=== PATIENT | male | born 1985 | race Caucasian/White ===

== ENCOUNTER 2017-09-17 20:56 | Emergency (ER) | payer MEDICAID ==
[~2017-09-17] VITALS: Ht 170.2 cm; Wt 73.2 kg
[~2017-09-17 20:56] MED LIST: CALC300T4 PO; IBUP-1984 PO
[2017-09-17 21:00] VITALS: BP 140/86
[2017-09-17] MEDS ORDERED: CLIN300C53 PO (21:15)
== END 2017-09-17 21:30 | disposition home or self-care (01) ==
LOC: ER 20:56
DX: K04.7 Periapical abscess without sinus (principal); J45.909 Unspecified asthma, uncomplicated; F15.10 Other stimulant abuse, uncomplicated; Z60.2 Problems related to living alone; Z98.890 Other specified postprocedural states; Z88.0 Allergy status to penicillin
CPT/HCPCS: 99283

== ENCOUNTER 2018-05-21 19:35 | Inpatient (IN) | payer MEDICAID, OTHER ==
[~2018-05-21] VITALS: Ht 167.6 cm; Wt 72.7 kg
[2018-05-21] MEDS ORDERED: diphenhydrAMINE 50 mg/ml inj IV ONE (19:40)
[2018-05-21] MEDS ORDERED: LORazepam 2 mg/ml vial IV ONE (19:40)
[2018-05-21] MEDS ORDERED: metoclopramide 5 mg/ml inj IV ONE (19:40)
[2018-05-21] MEDS ORDERED: normal saline 1000ML IV soln IVB ONE ×3 (19:40→20:20)
[2018-05-21 20:01] LABS: MEAN CORPUSCULAR HEMOGLOBIN 31.5 PG (27.0-31.0); MEAN CORPUSCULAR HGB CONC 33.5 % (33.0-36.5); MEAN CORPUSCULAR VOLUME 94.1 FL (78-98); MEAN PLATELET VOLUME 8.6 FL (7.4-10.4); PLATELET COUNT 349 X10'3 (140-440); RED BLOOD COUNT 6.98 X10'6 (4.70-6.10); RED CELL DISTRIBUTION WIDTH 12.5 % (11.5-14.5); WHITE BLOOD COUNT 22.6 X10'3 (4.5-11.0)
[2018-05-21 20:15] LABS: ALANINE AMINOTRANSFERASE 38 U/L (12-78); ALBUMIN 5.9 G/DL (3.4-5.0); ALBUMIN/GLOBULIN RATIO 1.2 (1.1-1.5); ALKALINE PHOSPHATASE 143 IU/L (46-116); ANION GAP 27 (8-16); ASPARTATE AMINO TRANSFERASE 56 U/L (10-37); BILIRUBIN,TOTAL 0.9 MG/DL (0.1-1.0); BLOOD UREA NITROGEN 75 MG/DL (7-18); BUN/CREATININE RATIO 7.9 (5.4-32.0); CHLORIDE 84 MMOL/L (99-107); CREATININE 9.48 MG/DL (0.60-1.10); GLUCOSE 145 MG/DL (70-104); LIPASE 99 U/L (73-393); POTASSIUM 4.8 MMOL/L (3.5-5.1); SODIUM 133 MMOL/L (135-145); TOTAL CARBON DIOXIDE 21.8 MMOL/L (24-32); TOTAL PROTEIN 10.9 G/DL (6.4-8.2); eGFR 6 ML/MIN
[2018-05-21 20:19] LABS: HEMATOCRIT 65.7 % (42.0-52.0)
[2018-05-21 20:33] LABS: PLATELET ESTIMATE NORMAL; TOTAL CELLS COUNTED 100
[2018-05-21 20:38] LABS: CLARITY,URINE CLOUDY (Clear); COLOR,URINE YELLOW (Yellow); GLUCOSE, URINE NEGATIVE (Neg); KETONES,URINE 15 mg/dl (Neg); LEUKOCYTE ESTERASE ,URINE NEGATIVE (Neg); NITRITES, URINE NEGATIVE (Neg); OCCULT BLOOD,URINE LARGE (Neg); PROTEIN,URINE 100 mg/dl (Neg); UROBILINOGEN,URINE 0.2 E.U/dL (0.2-1.0)
[2018-05-21 20:54] LABS: UA COLLECTION TYPE STRAIGHT CATH
[2018-05-21] MEDS ORDERED: temazepam 15mg capsule PO PRN (21:00)
[2018-05-21 21:03] LABS: MUCUS STRANDS MODERATE /LPF (Neg)
[2018-05-21 21:04] LABS: FINE GRANULAR CAST 0-3 /LPF (NEGATIVE)
[2018-05-21 21:05] LABS: AMORPHOUS URATES 2+; BACTERIA,URINE FEW /HPF (Neg)
[2018-05-21 21:06] LABS: SQUAMOUS EPITHELIAL CELL,UR MANY /LPF (FEW)
[2018-05-21] MEDS ORDERED: normal saline 1000ml 1,000 ML IV SCH (23:24)
[2018-05-21] MEDS ORDERED: mag hydrox/Alum hydrox/simeth 30ml oral suspension PO PRN (23:25)
[2018-05-21] MEDS ORDERED: HYDROmorphone 1 mg/ml syringe IV PRN (23:25)
[2018-05-21] MEDS ORDERED: morphine 4 MG/ML inj SYRINge IV PRN (23:25)
[2018-05-21] MEDS ORDERED: bisacodyl 10mg suppository rectal RC PRN (23:25)
[2018-05-21] MEDS ORDERED: magnesium hydroxide 30ml (MOM) UD suspension PO PRN (23:25)
[2018-05-21] MEDS ORDERED: ondansetron/PF 4mg/2ml inj IV PRN (23:25)
[2018-05-21] MEDS ORDERED: diphenhydrAMINE 50 mg/ml inj IV PRN (23:25)
[2018-05-21] MEDS ORDERED: acetaminophen 325mg tablet PO PRN ×2 (23:25)
[2018-05-21] MEDS ORDERED: metoclopramide 5 mg/ml inj IV PRN (23:25)
[2018-05-21] MEDS ORDERED: HYDROcodone/acetaminophen 10/325mg tab PO PRN (23:25)
[2018-05-21] MEDS ORDERED: diphenhydrAMINE 25mg capsule PO PRN (23:25)
[2018-05-21] MEDS ORDERED: acetaminophen 650mg rectal suppository RC PRN (23:25)
[2018-05-21 23:56] LABS: INR 1.2 INR; PARTIAL THROMBOPLASTIN TIME 33 SECONDS (22-32); PROTHROMBIN TIME 11.6 SECONDS (9.0-12.0)
[2018-05-22 00:07] LABS: MAGNESIUM 2.6 MG/DL (1.5-2.4)
[2018-05-22 00:08] LABS: CREATINE KINASE 2104 U/L (39-308); PHOSPHORUS 12.7 MG/DL (2.3-4.5)
[2018-05-22 00:14] LABS: HEMOGLOBIN A1C 5.2 % (4.5-6.2)
[2018-05-22 00:22] LABS: HEMATOCRIT 50.6 % (42.0-52.0); HEMOGLOBIN 17.6 g/dl (14.0-17.9); MEAN CORPUSCULAR HEMOGLOBIN 32.6 PG (27.0-31.0); MEAN CORPUSCULAR HGB CONC 34.8 % (33.0-36.5); MEAN CORPUSCULAR VOLUME 93.5 FL (78-98); MEAN PLATELET VOLUME 8.2 FL (7.4-10.4); PLATELET COUNT 288 X10'3 (140-440); RED BLOOD COUNT 5.41 X10'6 (4.70-6.10); RED CELL DISTRIBUTION WIDTH 12.5 % (11.5-14.5); WHITE BLOOD COUNT 18.9 X10'3 (4.5-11.0)
--- NOTE | 2018-05-22 00:54 | NUR ---
PATIENT AWAKE AND AT THE NURSING STATION ASKING WHERE THE BATHROOM IS WAS ABLE TO OBTAIN THAT PATIENT IS A0X4 AND WAS ABLE TO OBSERVE PATIENT AMBULATE W/O ASSIST 10 FEET WITH STEADY GAIT TO BATHROOM AND BACK TO ER BED #1
--- NOTE | 2018-05-22 01:10 | NUR ---
Patient in ER. I have received report from AQUILES Brady and had the opportunity to ask questions.
--- NOTE | 2018-05-22 01:19 | NUR ---
Patient arrived via wheelchair to room 8283S. Patient is able to stand and walk to bed without assistance. IV in place with normal saline running at 100ml/hr. Patient oriented to room, call light within reach, bed low and locked, patient wearing non skid socks. Water provided. sugar grinder #[id number] placed on patient. Vital signs assessed. Patient is A&Ox4 pink, warm and dry. Patient is sleepy and awakens to name then falls back asleep. Patient is unable to stay awake for admission questions. Will attempt at a later time.
[2018-05-22 01:30] VITALS: BP 144/84
--- NOTE | 2018-05-22 01:59 | NUR ---
Page to Dr. Rizvi to confirm fluid orders. PAGER ID: [phone] MESSAGE: Re: Clinton Malone Room: 3015A. Has 2 different fluid orders. Normal saline at 100 and D5W at 150ml.....Please call AQUILES Kim. [phone] Addendum: 05/22/18 at 0203 by Kayley Motley RN Per Dr. Rizvi D/C the Normal saline and run the D5W. Troponin order to be every 6 hour x3.
[2018-05-22] MEDS: dextrose 5%-water 1,000 ML IV SCH ×3 (02:26→10:47)
[2018-05-22 02:37] LABS: URINE AMPHETAMINE SCREEN POSITIVE (Neg); URINE BARBITUATE SCREEN NEGATIVE (Neg); URINE BENZODIAZEPINES SCREEN NEGATIVE (Neg); URINE CANNABINOID SCREEN POSITIVE (Neg); URINE COCAINE SCREEN NEGATIVE (Neg); URINE METHADONE SCREEN NEGATIVE (Neg); URINE OPIATE SCREEN NEGATIVE (Neg); URINE PHENCYCLIDINE SCREEN NEGATIVE (Neg)
[2018-05-22 06:00] VITALS: BP 129/81
[2018-05-22 06:23] LABS: BASOPHILS # (AUTO) 0.1 X10'3 (0-0.2); BASOPHILS % (AUTO) 0.4 % (0-1); EOSINOPHILS % (AUTO) 0 % (0-6); HEMOGLOBIN 16.9 g/dl (14.0-17.9); LYMPHOCYTES # (AUTO) 2.2 X10'3 (1.1-4.8); MEAN CORPUSCULAR HEMOGLOBIN 32.2 PG (27.0-31.0); MEAN CORPUSCULAR HGB CONC 34.5 % (33.0-36.5); MEAN CORPUSCULAR VOLUME 93.4 FL (78-98); MEAN PLATELET VOLUME 8.5 FL (7.4-10.4); MONOCYTES # (AUTO) 1.7 X10'3 (0-0.9); MONOCYTES % (AUTO) 10.6 % (2-12); NEUTROPHILS # (AUTO) 11.7 X10'3 (1.8-7.7); PLATELET COUNT 251 X10'3 (140-440); RED BLOOD COUNT 5.25 X10'6 (4.70-6.10); RED CELL DISTRIBUTION WIDTH 12.5 % (11.5-14.5); WHITE BLOOD COUNT 15.7 X10'3 (4.5-11.0)
[2018-05-22 06:28] LABS: ALANINE AMINOTRANSFERASE 30 U/L (12-78); ALBUMIN 3.5 G/DL (3.4-5.0); ALBUMIN/GLOBULIN RATIO 1.1 (1.1-1.5); ALKALINE PHOSPHATASE 82 IU/L (46-116); ANION GAP 11 (8-16); ASPARTATE AMINO TRANSFERASE 38 U/L (10-37); BILIRUBIN,TOTAL 0.9 MG/DL (0.1-1.0); BLOOD UREA NITROGEN 64 MG/DL (7-18); BUN/CREATININE RATIO 19.5 (5.4-32.0); CALCIUM 7.8 MG/DL (8.5-10.1); CHLORIDE 100 MMOL/L (99-107); CREATININE 3.29 MG/DL (0.60-1.10); GLUCOSE 130 MG/DL (70-104); POTASSIUM 3.8 MMOL/L (3.5-5.1); SODIUM 136 MMOL/L (135-145); TOTAL CARBON DIOXIDE 25.5 MMOL/L (24-32); TOTAL PROTEIN 6.6 G/DL (6.4-8.2); TROPONIN I < 0.04 NG/ML (0.0-0.05); eGFR 22 ML/MIN
--- NOTE | 2018-05-22 06:35 | NUR ---
Problems reprioritized. Patient report given, questions answered & plan of care reviewed with AQUILES Martinez. Patient responds to his name, is fatigued.
--- NOTE | 2018-05-22 06:49 | NUR ---
Patient in room PCU 3015. I have received report from AQUILES Kim and had the opportunity to ask questions and assume patient care.
[2018-05-22] MEDS: nicotine 21mg patch - 24 hr TD SCH (08:00)
[2018-05-22] MEDS: heparin, porcine 5000 units/ml vial SQ SCH ×2 (08:48→20:34)
[2018-05-22] MEDS: pantoprazole 40 MG vial IV SCH (08:48)
[2018-05-22] MEDS: docusate sod 100mg capsule PO SCH ×2 (08:48→20:32)
--- NOTE | 2018-05-22 09:04 | NUR ---
PAGER ID: [phone] MESSAGE: [id number] Clintonasael Annaard: I see the Levaquin is set to start tomorrow in the computer. Do you want me to change it to start today? AQUILES Martinez Ext [phone]
[2018-05-22] MEDS ORDERED: levoFLOXACIN-Levaquin 500mg/D5 100 ML IV SCH (09:10)
[2018-05-22 11:00] VITALS: BP 124/72
[2018-05-22] MEDS: normal saline 1000ml 1,000 ML IV SCH (17:02)
[2018-05-22 18:00] VITALS: BP 141/74
--- NOTE | 2018-05-22 18:28 | NUR ---
Problems reprioritized. Patient report given, questions answered & plan of care reviewed with AQUILES Kim.
[2018-05-22 19:00] VITALS: BP 141/74
[2018-05-22] MEDS ORDERED: lactobacillus rhamnosus 10,000 MMU CELLS/CAPSULE PO SCH (20:00)
[2018-05-22] MEDS: lactobacillus rhamnosus 10,000 MMU CELLS/CAPSULE PO SCH (20:32)
--- NOTE | 2018-05-23 00:15 | NUR ---
Problems reprioritized. Patient report given, questions answered & plan of care reviewed with AQUILES Hassan. Patient sleeping at time of report.
--- NOTE | 2018-05-23 00:20 | NUR ---
Patient in room PCU 3013. I have received report from Judy KWAN and had the opportunity to ask questions and assume patient care.
[2018-05-23 01:45] VITALS: BP 115/65
[2018-05-23 03:00] VITALS: BP 101/62
[2018-05-23] MEDS: normal saline 1000ml 1,000 ML IV SCH (03:53)
[2018-05-23 06:00] VITALS: BP 137/73
--- NOTE | 2018-05-23 06:31 | NUR ---
Patient in room PCU 3013. I have received report from AQUILES Humphries and had the opportunity to ask questions and assume patient care.
[2018-05-23 07:02] LABS: BASOPHILS % (AUTO) 0.5 % (0-1); EOSINOPHILS # (AUTO) 0.1 X10'3 (0-0.9); EOSINOPHILS % (AUTO) 0.8 % (0-6); HEMATOCRIT 45.3 % (42.0-52.0); HEMOGLOBIN 15.4 g/dl (14.0-17.9); LYMPHOCYTES # (AUTO) 2.2 X10'3 (1.1-4.8); LYMPHOCYTES % (AUTO) 24.3 % (21-51); MEAN CORPUSCULAR HEMOGLOBIN 31.8 PG (27.0-31.0); MEAN CORPUSCULAR VOLUME 93.5 FL (78-98); MEAN PLATELET VOLUME 8.4 FL (7.4-10.4); MONOCYTES # (AUTO) 1.2 X10'3 (0-0.9); MONOCYTES % (AUTO) 13.4 % (2-12); NEUTROPHILS # (AUTO) 5.5 X10'3 (1.8-7.7); PLATELET COUNT 221 X10'3 (140-440); RED BLOOD COUNT 4.85 X10'6 (4.70-6.10); RED CELL DISTRIBUTION WIDTH 11.8 % (11.5-14.5)
[2018-05-23 07:18] LABS: ALANINE AMINOTRANSFERASE 32 U/L (12-78); ALBUMIN 3.1 G/DL (3.4-5.0); ALKALINE PHOSPHATASE 74 IU/L (46-116); ANION GAP 7 (8-16); ASPARTATE AMINO TRANSFERASE 47 U/L (10-37); BILIRUBIN,TOTAL 1.9 MG/DL (0.1-1.0); BLOOD UREA NITROGEN 25 MG/DL (7-18); BUN/CREATININE RATIO 25.5 (5.4-32.0); CALCIUM 8.1 MG/DL (8.5-10.1); CHLORIDE 102 MMOL/L (99-107); CREATININE 0.98 MG/DL (0.60-1.10); GLUCOSE 97 MG/DL (70-104); POTASSIUM 3.7 MMOL/L (3.5-5.1); SODIUM 137 MMOL/L (135-145); TOTAL CARBON DIOXIDE 28.2 MMOL/L (24-32); TOTAL PROTEIN 6.1 G/DL (6.4-8.2); eGFR 88 ML/MIN
[2018-05-23] MEDS ORDERED: levoFLOXACIN-Levaquin 500mg/D5 100 ML IV SCH (08:00)
[2018-05-23] MEDS: docusate sod 100mg capsule PO SCH (08:02)
[2018-05-23] MEDS: pantoprazole 40 MG vial IV SCH (08:02)
[2018-05-23] MEDS: lactobacillus rhamnosus 10,000 MMU CELLS/CAPSULE PO SCH (08:02)
[2018-05-23] MEDS: heparin, porcine 5000 units/ml vial SQ SCH (08:03)
[2018-05-23] MEDS: nicotine 21mg patch - 24 hr TD SCH (08:04)
[2018-05-23] MEDS ORDERED: pneumococcal 23-VAL P-sac vacc 25 mcg/0.5ml vial IMVAC ONE (10:00)
[2018-05-23] MEDS ORDERED: FLU VACC QUAD 2018(5 YR UP)/PF 60 MCG/0.5 ML SYRINGE IM ONE (10:00)
--- NOTE | 2018-05-23 10:02 | NUR ---
[place] consult: Patient's current wt of 72.73 kg is stable with documented wt from previous visit of 73.25 kg 09/17/17. No documented edema or decrease in muscle strength. Pt currently does not meet criteria for malnutrition. Will continue to follow. Addendum: 05/23/18 at [address] Amended: Links added.
[2018-05-23 11:00] VITALS: BP 130/70
[2018-05-23 15:00] VITALS: BP 136/73
--- NOTE | 2018-05-23 15:43 | NUR ---
SS met w/pt to review referrals made for PMD/WPC, AOD treatment/services & resources for low-income rentals. Pt given listing of low-income apartment in [facility], information re how to access AOD assessment from providers in the [facility]. Pt indicated that he may be discharging tomorrow and will stay w/friends in the area, pt declined SS offer to secure a bed for him @ the [place]. SS will provide written D/C Instructions @ time of d/c.
--- NOTE | 2018-05-23 18:00 | NUR ---
Patient in room PCU 3013. I have received report from Juan KWAN and had the opportunity to ask questions and assume patient care. Pt has just gotten off the phone with Dr. Kirkland. DC orders have been put in. Pt to be DC tonight. Significant other at the bedside. Confirms she would be his ride home. Pt anxious to leave. Discussed that I would need some time to get his paperwork ready and will return to remove his IV and wristband before leaving.
[2018-05-23] MEDS ORDERED: LEVO500T2 PO (18:13)
--- NOTE | 2018-05-23 18:24 | NUR ---
Problems reprioritized. Patient report given, questions answered & plan of care reviewed with AQUILES Mccain.
--- NOTE | 2018-05-23 18:30 | NUR ---
Med called into [facility] on [address]
--- NOTE | 2018-05-23 20:02 | NUR ---
Pt DCd. Escorted down with PCU aide and pt's significant other as ride home. IV removed. Wrist band cut. DC paperwork signed and copied.
[2018-05-24] MEDS ORDERED: pantoprazole 40mg Tablet.DR PO SCH (07:30)
--- NOTE | 2018-05-24 09:26 | NUR ---
Pt d/c'd home, SS referral closed
== END 2018-05-23 20:00 | disposition home or self-care (01) | DRG 720 ==
LOC: ER 19:36 → ED HOLD 23:24 → PCU 3S 05-22 01:15
PROVIDERS: ADMIT Family Medicine; ATTEND Hospitalist
PROC: 3E0234Z Introduction of Serum, Toxoid and Vaccine into Muscle, Percutaneous Approach (ICD-10-PCS; principal; 2018-05-23)
PROC: 3E02340 Introduction of Influenza Vaccine into Muscle, Percutaneous Approach (ICD-10-PCS; 2018-05-23)
DX: A41.9 Sepsis, unspecified organism (principal); N17.0 Acute kidney failure with tubular necrosis; G93.41 Metabolic encephalopathy; E44.0 Moderate protein-calorie malnutrition; N39.0 Urinary tract infection, site not specified; E86.0 Dehydration; I10 Essential (primary) hypertension; J20.9 Acute bronchitis, unspecified; J44.0 Chronic obstructive pulmonary disease with (acute) lower respiratory infection; K21.9 Gastro-esophageal reflux disease without esophagitis; F15.129 Other stimulant abuse with intoxication, unspecified; F17.210 Nicotine dependence, cigarettes, uncomplicated; Z23 Encounter for immunization; Z79.899 Other long term (current) drug therapy; Z68.25 Body mass index [BMI] 25.0-25.9, adult
CPT/HCPCS: 36415; 70450; 71045; 74176; 80053; 80305; 81001; 82550; 82948; 83036; 83605; 83690; 83735; 83880; 84100; 84443; 84484; 85025; 85027; 85610; 85730; 87070; 87088; 93005; 96361; 96374; 96375; 99285; C9113; G0378; J1200; J1644; J1956; J2060; J2765; J7030; J7070; Q2037

== ENCOUNTER 2018-06-24 08:49 | Outpatient (CLI) | payer MEDICAID | END 2018-06-24 23:59 | disposition home or self-care (01) | LOC: CARD DIAG 08:49 | PROVIDERS: ATTEND Student in an Organized Health Care Education/Training Program | DX: I07.1 Rheumatic tricuspid insufficiency (principal); J45.909 Unspecified asthma, uncomplicated; Z88.0 Allergy status to penicillin | CPT/HCPCS: 93306 ==

== ENCOUNTER 2018-08-22 16:30 | Emergency (ER) | payer MEDICAID ==
[~2018-08-22] VITALS: Ht 167.6 cm; Wt 75.0 kg
[2018-08-22] MEDS ORDERED: ondansetron 4mg rapidly disintigrating tab PO ONE ×2 (16:55→19:30)
[2018-08-22 17:29] LABS: URINE AMPHETAMINE SCREEN NEGATIVE (Neg); URINE BARBITUATE SCREEN NEGATIVE (Neg); URINE BENZODIAZEPINES SCREEN NEGATIVE (Neg); URINE CANNABINOID SCREEN POSITIVE (Neg); URINE COCAINE SCREEN NEGATIVE (Neg); URINE METHADONE SCREEN NEGATIVE (Neg); URINE OPIATE SCREEN NEGATIVE (Neg); URINE PHENCYCLIDINE SCREEN NEGATIVE (Neg)
[2018-08-22 17:34] LABS: CLARITY,URINE CLOUDY (Clear); COLOR,URINE AMBER (Yellow); GLUCOSE, URINE NEGATIVE (Neg); KETONES,URINE 15 mg/dl (Neg); LEUKOCYTE ESTERASE ,URINE NEGATIVE (Neg); NITRITES, URINE NEGATIVE (Neg); OCCULT BLOOD,URINE TRACE-INTACT (Neg); PH,URINE 5.5 (4.8-8.0); PROTEIN,URINE 30 mg/dl (Neg); UROBILINOGEN,URINE 0.2 E.U/dL (0.2-1.0)
[2018-08-22 17:35] LABS: UA COLLECTION TYPE VOIDED
[2018-08-22 17:51] LABS: CAL OXALATE CRYSTALS FEW /HPF (NEGATIVE)
[2018-08-22 17:52] LABS: SQUAMOUS EPITHELIAL CELL,UR FEW /LPF (FEW)
[2018-08-22] MEDS ORDERED: ONDA4TAB6 PO ×2 (17:54→19:43)
[2018-08-22] MEDS ORDERED: ASPI-130 PO (17:54)
[2018-08-22 18:01] LABS: BACTERIA,URINE 3+ /HPF (Neg)
[2018-08-22 18:02] LABS: BASOPHILS # (AUTO) 0.1 X10'3 (0-0.2); BASOPHILS % (AUTO) 0.7 % (0-1); EOSINOPHILS # (AUTO) 0.1 X10'3 (0-0.9); EOSINOPHILS % (AUTO) 0.5 % (0-6); HEMATOCRIT 51.6 % (42.0-52.0); HEMOGLOBIN 17.8 g/dl (14.0-17.9); LYMPHOCYTES # (AUTO) 1.7 X10'3 (1.1-4.8); LYMPHOCYTES % (AUTO) 11.4 % (21-51); MEAN CORPUSCULAR HGB CONC 34.6 g/dL (33.0-36.5); MEAN CORPUSCULAR VOLUME 92.5 FL (78-98); MEAN PLATELET VOLUME 7.6 FL (7.4-10.4); MONOCYTES # (AUTO) 0.7 X10'3 (0-0.9); MONOCYTES % (AUTO) 4.9 % (2-12); NEUTROPHILS # (AUTO) 12.1 X10'3 (1.8-7.7); NEUTROPHILS % (AUTO) 82.5 % (42-75); PLATELET COUNT 263 X10'3 (140-440); RED BLOOD COUNT 5.58 X10'6 (4.70-6.10); RED CELL DISTRIBUTION WIDTH 13.3 % (11.5-14.5); WHITE BLOOD COUNT 14.7 X10'3 (4.5-11.0)
[2018-08-22 18:22] LABS: ALANINE AMINOTRANSFERASE 40 U/L (12-78); ALBUMIN 4.8 G/DL (3.4-5.0); ALBUMIN/GLOBULIN RATIO 1.5 (1.1-1.5); ALKALINE PHOSPHATASE 97 IU/L (46-116); ANION GAP 11 (8-16); ASPARTATE AMINO TRANSFERASE 38 U/L (10-37); BILIRUBIN,TOTAL 1.4 MG/DL (0.1-1.0); BLOOD UREA NITROGEN 29 MG/DL (7-18); CALCIUM 9.8 MG/DL (8.5-10.1); CHLORIDE 101 MMOL/L (99-107); CREATININE 1.32 MG/DL (0.60-1.10); GLUCOSE 119 MG/DL (70-104); LIPASE < 50 U/L (73-393); POTASSIUM 4.2 MMOL/L (3.5-5.1); SODIUM 139 MMOL/L (135-145); TOTAL CARBON DIOXIDE 26.8 MMOL/L (24-32); TOTAL PROTEIN 8.1 G/DL (6.4-8.2); eGFR 62 ML/MIN
[2018-08-22] MEDS ORDERED: normal saline 1000ML IV soln IVB ONE (18:30)
--- NOTE | 2018-08-22 18:48 | NUR ---
Patient lying in bed under serval blankets and states that he is feeling, "very dehydrated." Patient reports nausea and vomiting x2 days. Patient is requesting fluids. 2L NS were ordered and administered. Currently waiting for NS bolus to complete.
--- NOTE | 2018-08-22 19:05 | NUR ---
First liter of NS completed. Second bag hung.
--- NOTE | 2018-08-22 19:31 | NUR ---
2nd liter of saline completed. Patient describes himself as, "sick as shit." Patient describes, "sick as shit" as nauseated. Wilder notified and orders obtained.
[2018-08-22 19:57] VITALS: BP 126/81
== END 2018-08-22 19:59 | disposition home or self-care (01) ==
LOC: ER 16:31
DX: R11.2 Nausea with vomiting, unspecified (principal); R10.12 Left upper quadrant pain; R19.7 Diarrhea, unspecified; J45.909 Unspecified asthma, uncomplicated; F12.90 Cannabis use, unspecified, uncomplicated; F11.90 Opioid use, unspecified, uncomplicated; F17.200 Nicotine dependence, unspecified, uncomplicated; Z98.890 Other specified postprocedural states; Z60.2 Problems related to living alone; Z88.0 Allergy status to penicillin; Z79.82 Long term (current) use of aspirin; Z79.899 Other long term (current) drug therapy
CPT/HCPCS: 36415; 80053; 80305; 81001; 83690; 85025; 87088; 96360; 99283; J7030

== ENCOUNTER 2018-12-19 15:15 | Emergency (ER) | payer MEDICAID, OTHER ==
[~2018-12-19] VITALS: Ht 167.6 cm; Wt 65.0 kg
[~2018-12-19 15:15] MED LIST changes: +ASPI-130 PO; -CALC300T4 PO; -IBUP-1984 PO; +ONDA4TAB6 PO
[2018-12-19] MEDS ORDERED: diphenhydrAMINE 50 mg/ml inj IV ONE (15:55)
[2018-12-19] MEDS ORDERED: normal saline 1000ML IV soln IVB ONE ×2 (15:55→19:05)
[2018-12-19] MEDS ORDERED: proCHLORperazine 10 MG/2 ml inj IV ONE (15:55)
--- NOTE | 2018-12-19 16:13 | NUR ---
pt shivering, blanket applyed, Wilder PA aware. Urine specman requested/urinal at bedside
--- NOTE | 2018-12-19 16:30 | NUR ---
PT RESTING QUIETLY, FRIEND AT BEDSIDE
--- NOTE | 2018-12-19 16:44 | NUR ---
pt resting quietly with friend at bedside
--- NOTE | 2018-12-19 16:52 | NUR ---
urine specmin requested, friend at bedside to assist patient with urinal. pt acknowledge request
[2018-12-19 17:08] LABS: BASOPHILS # (AUTO) 0.1 X10'3 (0-0.2); BASOPHILS % (AUTO) 0.4 % (0-1); EOSINOPHILS % (AUTO) 0.1 % (0-6); HEMATOCRIT 52.2 % (42.0-52.0); HEMOGLOBIN 17.5 g/dl (14.0-17.9); LYMPHOCYTES # (AUTO) 1.8 X10'3 (1.1-4.8); LYMPHOCYTES % (AUTO) 10.2 % (21-51); MEAN CORPUSCULAR HEMOGLOBIN 31.6 PG (27.0-31.0); MEAN CORPUSCULAR HGB CONC 33.6 g/dL (33.0-36.5); MEAN CORPUSCULAR VOLUME 94.2 FL (78-98); MONOCYTES # (AUTO) 1.3 X10'3 (0-0.9); MONOCYTES % (AUTO) 7.4 % (2-12); NEUTROPHILS # (AUTO) 14.2 X10'3 (1.8-7.7); NEUTROPHILS % (AUTO) 81.9 % (42-75); PLATELET COUNT 259 X10'3 (140-440); RED BLOOD COUNT 5.54 X10'6 (4.70-6.10); RED CELL DISTRIBUTION WIDTH 12.9 % (11.5-14.5); WHITE BLOOD COUNT 17.4 X10'3 (4.5-11.0)
[2018-12-19 17:08] LABS: CLARITY,URINE CLOUDY (Clear); COLOR,URINE YELLOW (Yellow); GLUCOSE, URINE NEGATIVE (Neg); KETONES,URINE 15 mg/dl (Neg); LEUKOCYTE ESTERASE ,URINE NEGATIVE (Neg); NITRITES, URINE NEGATIVE (Neg); OCCULT BLOOD,URINE NEGATIVE (Neg); PH,URINE 5.5 (4.8-8.0); PROTEIN,URINE 30 mg/dl (Neg); UA COLLECTION TYPE CLN CATCH MIDSTREAM; UROBILINOGEN,URINE 0.2 E.U/dL (0.2-1.0)
[2018-12-19 17:15] LABS: HYALINE CASTS >30 /LPF (NEGATIVE); MUCUS STRANDS MANY /LPF (Neg); SQUAMOUS EPITHELIAL CELL,UR FEW /LPF (FEW)
[2018-12-19 17:16] LABS: CAL OXALATE CRYSTALS 2+ /HPF (NEGATIVE); TRANSITIONAL EPI CELLS,URINE FEW /HPF; WBC,URINE 0-4 /HPF (0-4)
[2018-12-19 17:17] LABS: ALANINE AMINOTRANSFERASE 31 U/L (12-78); ALBUMIN 4.7 G/DL (3.4-5.0); ALBUMIN/GLOBULIN RATIO 1.3 (1.1-1.5); ALKALINE PHOSPHATASE 119 IU/L (46-116); ANION GAP 17 (8-16); ASPARTATE AMINO TRANSFERASE 20 U/L (10-37); BILIRUBIN,TOTAL 0.9 MG/DL (0.1-1.0); BLOOD UREA NITROGEN 18 MG/DL (7-18); CALCIUM 9.5 MG/DL (8.5-10.1); CHLORIDE 108 MMOL/L (99-107); GLUCOSE 113 MG/DL (70-104); POTASSIUM 4.1 MMOL/L (3.5-5.1); SODIUM 146 MMOL/L (135-145); TOTAL CARBON DIOXIDE 21.5 MMOL/L (24-32); TOTAL PROTEIN 8.4 G/DL (6.4-8.2); eGFR 38 ML/MIN
[2018-12-19 17:17] LABS: BACTERIA,URINE FEW /HPF (Neg); RBC,URINE NONE SEEN /HPF (0-2)
[2018-12-19 17:32] LABS: LIPASE 73 U/L (73-393)
[2018-12-19] MEDS ORDERED: ondansetron 4mg rapidly disintigrating tab PO ONE (18:20)
--- NOTE | 2018-12-19 18:21 | NUR ---
PT C/O NAUSEA DESPITE COMPAZINE AT 4 PM, MAITE SINGH INFORMED , ORDER RECEIVED
--- NOTE | 2018-12-19 18:30 | NUR ---
pt resting peacfully IV PATENT, RESTING PEACFULLY ON BACK WITH FRIEND AT BEDSIDE. MEDICTED FOR NAUSEA , ALL VSS SATBLE
--- NOTE | 2018-12-19 18:59 | NUR ---
2 HR LACTIC DRAWN FROM IV AND SENT TO LAB - PT RESTING COMFORTABLY, LIGHTS DIMMED
--- NOTE | 2018-12-19 19:48 | NUR ---
BMP PULLED FROM LINE AND SENT TO LAB
--- NOTE | 2018-12-19 20:22 | NUR ---
NOTIFIED DR IRIZARRY THAT PT C/O ANXIETY , AND SMART . INFORMED HIM THE POIOSN CONTROL CALLED FOR AN REEVALUATION SUGGESTED A REPEAT EKG 6 HOUR AFTERWARD INTITAL. EKG ORDERED ADM PERFROMED .
[2018-12-19 20:42] LABS: ALBUMIN 3.9 G/DL (3.4-5.0); ANION GAP 9 (8-16); BLOOD UREA NITROGEN 17 MG/DL (7-18); BUN/CREATININE RATIO 12.7 (5.4-32.0); CALCIUM 8.4 MG/DL (8.5-10.1); CHLORIDE 112 MMOL/L (99-107); CREATININE 1.34 MG/DL (0.60-1.10); GLUCOSE 122 MG/DL (70-104); POTASSIUM 4.9 MMOL/L (3.5-5.1); SODIUM 144 MMOL/L (135-145); TOTAL CARBON DIOXIDE 23.4 MMOL/L (24-32); eGFR 61 ML/MIN
[2018-12-19] MEDS ORDERED: ONDA4TAB6 PO (21:06)
[2018-12-19 21:23] VITALS: BP 111/75
== END 2018-12-19 21:26 | disposition home or self-care (01) ==
LOC: ER 15:15
DX: T67.8XXA Other effects of heat and light, initial encounter (principal); E86.0 Dehydration; N17.9 Acute kidney failure, unspecified; R11.2 Nausea with vomiting, unspecified; K02.9 Dental caries, unspecified; R12 Heartburn; R05 Cough; R61 Generalized hyperhidrosis; R10.84 Generalized abdominal pain; J45.909 Unspecified asthma, uncomplicated; F12.90 Cannabis use, unspecified, uncomplicated; F15.90 Other stimulant use, unspecified, uncomplicated; F17.200 Nicotine dependence, unspecified, uncomplicated; Z86.14 Personal history of Methicillin resistant Staphylococcus aureus infection; Z88.0 Allergy status to penicillin; Z79.899 Other long term (current) drug therapy; Z60.2 Problems related to living alone; Z98.890 Other specified postprocedural states; X32.XXXA Exposure to sunlight, initial encounter; Y93.89 Activity, other specified; Y92.89 Other specified places as the place of occurrence of the external cause; Y99.0 Civilian activity done for income or pay
CPT/HCPCS: 36415; 80048; 80053; 81001; 82553; 83605; 83690; 84145; 85025; 96361; 96374; 96375; 99284; J0780; J1200; J2405; J7030